=== PATIENT | male | born 1995 | race Caucasian/White ===

== ENCOUNTER 2023-08-22 13:07 | Emergency (ER) | payer SELFPAY ==
[2023-08-22] MEDS ORDERED: Acetaminophen 325 MG TAB ONE (14:01)
== END 2023-08-22 15:00 | disposition home or self-care (01) ==
LOC: CSHERS 13:07
DX: S86.012A Strain of left Achilles tendon, initial encounter (principal); X50.1XXA Overexertion from prolonged static or awkward postures, initial encounter; Y93.67 Activity, basketball
CPT/HCPCS: 29515